=== PATIENT | female | born 1945 | race Caucasian/White ===

== ENCOUNTER 2019-07-26 21:45 | Emergency (ER) | payer MEDICARE, BC ==
[2019-07-26] MEDS ORDERED: Ondansetron PF 4 MG/2 ML Vial ONE (22:06)
[2019-07-26] MEDS ORDERED: Diazepam 10 MG/2 ML SYRINGE ONE (22:06)
[2019-07-26 22:25] LABS: #Basophils 0.1 thou/uL (0.0-0.2); #Eosinphils 0.1 thou/uL (0.0-0.7); #Lymphocytes 2.5 thou/uL (1.20-3.40); #Monocytes 0.3 thou/uL (0.11-0.59); #Neutrophils 3.5 thou/uL (1.40-6.50); %Basophils 1.4 % (0.0-1.0); %Eosinophils 1.9 % (0.0-10.0); %Monocytes 4.8 % (0.0-10.0); %Neutrophils 53.8 % (42.0-75.0); Hemoglobin 12.2 g/dL (12.0-16.0); Mean Corpuscular HGB CONC 31.9 g/dL (32.0-36.0); Mean Corpuscular Hemoglobin 31.6 pg (27.0-31.0); Mean Corpuscular Volume 99.1 fL (78.0-98.0); Mean Platelet Volume 8.5 fL (7.4-10.4); Platelet Count 226 thou/uL (130-400); RBC Distribution Width 11.1 % (11.5-14.5); Red Blood Cell (RBC) Count 3.85 mill/uL (4.20-5.40); White Blood Cell (WBC) Count 6.5 thou/uL (4.8-10.8)
[2019-07-26 22:38] LABS: ALT (SGPT) 40 U/L (8-55); AST (SGOT) 45 U/L (5-34); Albumin 4.6 g/dL (3.4-4.8); Alkaline Phosphatase 58 U/L (40-110); Anion Gap 14 mmol/L (10-20); BUN (Urea Nitrogen) 22 mg/dL (9.8-20.1); Bilirubin, Total 0.4 mg/dL (0.2-1.2); Calc. Creatinine Clearance 0 mL/min (70-130); Calcium 9.4 mg/dL (7.8-10.44); Carbon Dioxide 24 mmol/L (23-31); Chloride 100 mmol/L (98-107); Estimated GFR-MDRD 50; Globulin 2.9 g/dL (2.4-3.5); Glucose 153 mg/dL (83-110); Lipase 68 U/L (8-78); Potassium 3.2 mmol/L (3.5-5.1); Protein, Total 7.5 g/dL (6.0-8.3); Sodium 135 mmol/L (136-145)
[2019-07-26 22:58] LABS: CKMB 8.5 ng/mL (0-6.6)
[2019-07-26] MEDS ORDERED: Potassium Chloride 20 MEQ TAB ONE (23:06)
[2019-07-26] MEDS ORDERED: Aspirin Chewable 81 MG TAB ONE (23:06)
--- NOTE | 2019-07-27 07:52 | CT ---
PRELIMINARY REPORT/[facility]/EMERGENCY AFTER HOURS PROCEDURE EXAM: CT Abdomen and Pelvis Without Intravenous Contrast CLINICAL HISTORY: Pt has lower abd pain, nausea, no iv given per er doctor due to allergy TECHNIQUE: Axial computed tomography images of the abdomen and pelvis without intravenous contrast. CONTRAST: None. COMPARISON: None provided. FINDINGS: LUNG BASES: No basilar airspace consolidation or pleural effusion. LIVER: Unremarkable. GALLBLADDER AND BILE DUCTS: Unremarkable. No calcified stone. No ductal dilation. PANCREAS: Unremarkable. SPLEEN: Unremarkable. ADRENAL GLANDS: Unremarkable. KIDNEYS, URETERS, AND BLADDER: Unremarkable. No hydronephrosis or nephrolithiasis. No ureteral or messi dder calculi. STOMACH AND BOWEL: No obstruction. No wall thickening. No CT evidence of colitis or acute diverticuli tis. APPENDIX: No CT evidence for appendicitis. PERITONEUM: No free fluid. No free air. LYMPH NODES: No lymphadenopathy. REPRODUCTIVE: Unremarkable as visualized. VASCULATURE: No aortic aneurysm. ABDOMINAL WALL AND SOFT TISSUES: Unremarkable. BONES: No fracture or suspicious osseous abnormality. IMPRESSION: No acute intra-abdominal or pelvic abnormality. ELECTRONICALLY SIGNED BY: Elizabet El D.O. July 26, 2019 11:12:21 PM CDT FINAL REPORT CT ABDOMEN AND PELVIS WITHOUT CONTRAST: DATE: 07/26/2019. FINDINGS: Spiral CT of the abdomen and pelvis was done without IV contrast for evaluation of lower abdominal pa in. The lung bases are clear. The liver, spleen, pancreas, gallbladder, adrenal glands, kidneys, and abd ominal aorta showed no acute findings within the limitations of a noncontrast study. The bowel shows no distention to suggest obstruction. There is no sign of wall thickening, inflammatory change arou nd bowel, or diverticulitis. No free air or free fluid was seen. There is no sign of appendicitis. CT of the pelvis showed no pelvis masses, fluid collections, or inflammatory changes. I would say th at the amount of fecal material in the colon has increased. The bony structures showed no acute robins ge. IMPRESSION: At most, mild constipation. Report in agreement with preliminary reading by [facility]. POS: HOME
== END 2019-07-26 23:40 | disposition short-term general hospital (02) ==
LOC: BURERS 21:45
DX: R10.32 Left lower quadrant pain (principal); R10.31 Right lower quadrant pain; E87.6 Hypokalemia; R79.89 Other specified abnormal findings of blood chemistry; I10 Essential (primary) hypertension
CPT/HCPCS: 74176; 80053; 82553; 83605; 83690; 84484; 85025; 93005; 96374; 96375; J2405; J3360